=== PATIENT | female | born 1995 | race Caucasian/White ===

== ENCOUNTER 2018-12-27 13:49 | Inpatient (IN) | payer OTHER ==
[2018-12-27] MEDS ORDERED: MISOPROSTOL 200 MCG TAB PR ×2 (14:30→21:30)
[2018-12-27] MEDS ORDERED: OXYTOCIN 30 UNITS/LR 500 ML IV ×2 (14:30→21:30)
[2018-12-27] MEDS ORDERED: METHYLERGONOVINE 0.2 MG INJ IM ×2 (14:30→21:30)
[2018-12-27] MEDS ORDERED: CARBOPROST 250 MCG INJ IM ×2 (14:30→21:30)
[2018-12-27 14:35] LABS: ADD MAN DIFF? NO
[2018-12-27 14:41] LABS: BASOPHILS % 0.2 % (0.0-2.0); EOSINOPHILS % 0.2 % (0.0-7.0); HEMATOCRIT 31.5 % (37.0-47.0); HEMOGLOBIN 10.3 g/dl (12.0-16.0); LYMPHOCYTES # 0.9 10^3/ul (0.8-2.9); LYMPHOCYTES % 20.4 % (15.0-51.0); MEAN CORPUSCULAR HEMOGLOBIN 25.8 pg (29.0-33.0); MEAN CORPUSCULAR HGB CONC 32.7 g/dl (32.0-37.0); MEAN CORPUSCULAR VOLUME 78.8 fl (82.0-101.0); MEAN PLATELET VOLUME 11.7 fl (7.4-10.4); MONOCYTE # 0.3 10^3/ul (0.3-0.9); MONOCYTES % 5.8 % (0.0-11.0); NEUTROPHIL # 3.2 10^3/ul (1.6-7.5); NEUTROPHILS % 73.2 % (39.0-77.0); PLATELET COUNT 209 10^3/UL (140-415); RED CELL DISTRIBUTION WIDTH 13.4 % (11.5-14.5)
[2018-12-27 14:41] LABS: WHITE BLOOD COUNT 4.3 10^3/ul (4.8-10.8)
[2018-12-27] MEDS: GENTAMICIN 120 MG/NS (PMX) 100 ML IVPB (14:47)
[2018-12-27] MEDS: LACTATED RINGER'S 1,000 ML IV ×2 (14:47→23:24)
[2018-12-27 14:56] LABS: INR 0.84; PROTIME 11.6 Sec (11.9-14.9); PT RATIO 0.9
[2018-12-27 14:57] LABS: PARTIAL THROMBOPLASTIN TIME 28.1 Sec (23.0-35.0)
[2018-12-27 15:11] LABS: RAPID PLASMA REAGIN NONREACTIVE (NR)
[2018-12-27] MEDS: CITRIC ACID/NA CITRATE 30 ML CUP PO (15:33)
[2018-12-27 15:38] LABS: HEPATITIS B SURFACE ANTIGEN NEGATIVE (NEGATIVE)
[2018-12-27] MEDS ORDERED: ONDANSETRON 4 MG INJ (15:47)
[2018-12-27] MEDS ORDERED: morphine SULFATE/PF (10 MG/10 ML) INJ (15:47)
[2018-12-27] MEDS ORDERED: METOCLOPRAMIDE 10 MG INJ (15:47)
[2018-12-27] MEDS ORDERED: KETOROLAC 30 MG INJ (15:47)
[2018-12-27] MEDS ORDERED: NALOXONE (0.4 MG/ML) INJ IV (17:30)
[2018-12-27] MEDS ORDERED: MEPERIDINE 25 MG INJ IV (17:30)
[2018-12-27] MEDS ORDERED: DIPHENHYDRAMINE 50 MG INJ IV ×2 (17:30)
[2018-12-27] MEDS ORDERED: ONDANSETRON 4 MG INJ IV (17:30)
[2018-12-27] MEDS ORDERED: morphine 2 MG INJ IV ×6 (17:30)
[2018-12-27] MEDS ORDERED: KETOROLAC 30 MG INJ IV (17:30)
[2018-12-27] MEDS: CLINDAMYCIN 900 MG/D5W (PMX) 50 ML IVPB ×2 (17:59→21:30)
[2018-12-27] MEDS: OXYTOCIN 30 UNITS/LR 500 ML IV (18:17)
[2018-12-27] MEDS: ONDANSETRON 4 MG INJ IV (21:25)
[2018-12-27] MEDS ORDERED: NA PHOSPHATE/BIPHOS 133 ML ENEMA PR (21:30)
[2018-12-27] MEDS ORDERED: HYDROCODONE/APAP (5/325) TAB PO (21:30)
[2018-12-27] MEDS: GENTAMICIN 80 MG/NS (PMX) 50 ML IVPB (22:41)
[2018-12-28] MEDS: ACETAMINOPHEN 500 MG TAB PO (00:10)
[2018-12-28] MEDS: KETOROLAC 30 MG INJ IV ×3 (00:10→13:19)
[2018-12-28] MEDS: CLINDAMYCIN 900 MG/D5W (PMX) 50 ML IVPB ×2 (05:22→13:07)
[2018-12-28] MEDS: GENTAMICIN 80 MG/NS (PMX) 50 ML IVPB ×2 (06:32→13:23)
[2018-12-28 08:21] LABS: ADD MAN DIFF? NO
[2018-12-28 08:31] LABS: WHITE BLOOD COUNT 5.4 10^3/ul (4.8-10.8)
[2018-12-28 08:31] LABS: BASOPHILS % 0.2 % (0.0-2.0); EOSINOPHILS % 0.2 % (0.0-7.0); HEMATOCRIT 29.7 % (37.0-47.0); HEMOGLOBIN 9.9 g/dl (12.0-16.0); LYMPHOCYTES # 0.6 10^3/ul (0.8-2.9); LYMPHOCYTES % 11.6 % (15.0-51.0); MEAN CORPUSCULAR HEMOGLOBIN 26.2 pg (29.0-33.0); MEAN CORPUSCULAR HGB CONC 33.3 g/dl (32.0-37.0); MEAN CORPUSCULAR VOLUME 78.6 fl (82.0-101.0); MEAN PLATELET VOLUME 11.8 fl (7.4-10.4); MONOCYTE # 0.3 10^3/ul (0.3-0.9); MONOCYTES % 6.2 % (0.0-11.0); NEUTROPHIL # 4.4 10^3/ul (1.6-7.5); NEUTROPHILS % 81.6 % (39.0-77.0); PLATELET COUNT 176 10^3/UL (140-415); RED BLOOD COUNT 3.78 10^6/ul (4.20-5.40); RED CELL DISTRIBUTION WIDTH 13.5 % (11.5-14.5)
[2018-12-28] MEDS: SENNA/DOCUSATE NA (8.6MG/50MG) TAB PO ×2 (09:12→21:30)
[2018-12-28] MEDS: BISACODYL 10 MG SUPP PR (09:13)
[2018-12-28] MEDS: OXYCODONE/ACETAMINOPHEN (5/325) TAB PO (18:02)
[2018-12-28] MEDS: IBUPROFEN 800 MG TAB PO (21:30)
[2018-12-29] MEDS: IBUPROFEN 800 MG TAB PO ×3 (06:24→21:44)
[2018-12-29] MEDS: CLINDAMYCIN 300 MG CAP PO ×3 (06:24→17:34)
[2018-12-29 08:17] LABS: ADD MAN DIFF? NO
[2018-12-29 08:19] LABS: BASOPHILS % 0.1 % (0.0-2.0); EOSINOPHILS % 0.4 % (0.0-7.0); HEMATOCRIT 28.9 % (37.0-47.0); HEMOGLOBIN 9.6 g/dl (12.0-16.0); LYMPHOCYTES # 0.8 10^3/ul (0.8-2.9); LYMPHOCYTES % 10.1 % (15.0-51.0); MEAN CORPUSCULAR HEMOGLOBIN 26.2 pg (29.0-33.0); MEAN CORPUSCULAR HGB CONC 33.2 g/dl (32.0-37.0); MEAN PLATELET VOLUME 11.5 fl (7.4-10.4); MONOCYTE # 0.4 10^3/ul (0.3-0.9); MONOCYTES % 5.5 % (0.0-11.0); NEUTROPHIL # 6.7 10^3/ul (1.6-7.5); NEUTROPHILS % 83.5 % (39.0-77.0); PLATELET COUNT 193 10^3/UL (140-415); RED BLOOD COUNT 3.66 10^6/ul (4.20-5.40); RED CELL DISTRIBUTION WIDTH 13.9 % (11.5-14.5)
[2018-12-29] MEDS: SENNA/DOCUSATE NA (8.6MG/50MG) TAB PO ×2 (09:17→21:44)
[2018-12-30] MEDS: CLINDAMYCIN 300 MG CAP PO ×4 (00:02→18:02)
[2018-12-30] MEDS: IBUPROFEN 800 MG TAB PO ×2 (06:57→13:22)
[2018-12-30] MEDS: SENNA/DOCUSATE NA (8.6MG/50MG) TAB PO (09:36)
[2018-12-30] MEDS: DIPHTH/TET/ACEL PERTUSS (ADULT) 0.5 ML VIAL IM* (09:49)
[2018-12-30] MEDS: LANOLIN HPA 1 PKT TOP (12:38)
[2018-12-30] MEDS ORDERED: ACETAMINOPHEN 325 MG TAB PO (16:30)
[2018-12-30 17:25] LABS: ADD MAN DIFF? NO
[2018-12-30 17:27] LABS: BASOPHILS % 0.3 % (0.0-2.0); EOSINOPHILS # 0.1 10^3/ul (0.0-0.5); EOSINOPHILS % 2.2 % (0.0-7.0); HEMATOCRIT 30.4 % (37.0-47.0); LYMPHOCYTES % 17.1 % (15.0-51.0); MEAN CORPUSCULAR HEMOGLOBIN 26.6 pg (29.0-33.0); MEAN CORPUSCULAR HGB CONC 32.9 g/dl (32.0-37.0); MEAN CORPUSCULAR VOLUME 80.9 fl (82.0-101.0); MEAN PLATELET VOLUME 11.3 fl (7.4-10.4); MONOCYTE # 0.4 10^3/ul (0.3-0.9); MONOCYTES % 6.7 % (0.0-11.0); NEUTROPHIL # 4.3 10^3/ul (1.6-7.5); NEUTROPHILS % 73.4 % (39.0-77.0); PLATELET COUNT 233 10^3/UL (140-415); RED BLOOD COUNT 3.76 10^6/ul (4.20-5.40); RED CELL DISTRIBUTION WIDTH 14.3 % (11.5-14.5)
[2018-12-30 17:27] LABS: WHITE BLOOD COUNT 5.9 10^3/ul (4.8-10.8)
== END 2018-12-30 19:00 | disposition home or self-care (01) | DRG 788 ==
LOC: L-D 13:49 → PP1 20:49
PROVIDERS: Obstetrics & Gynecology
PROC: 10D00Z1 Extraction of Products of Conception, Low, Open Approach (ICD-10-PCS; principal; 2018-12-27 15:30)
PROC: 3E033VJ Introduction of Other Hormone into Peripheral Vein, Percutaneous Approach (ICD-10-PCS; 2018-12-27 15:30)
DX: O65.5 Obstructed labor due to abnormality of maternal pelvic organs (principal); O34.211 Maternal care for low transverse scar from previous cesarean delivery; O48.0 Post-term pregnancy; Z3A.40 40 weeks gestation of pregnancy; Z37.0 Single live birth
CPT/HCPCS: 85025; 85610; 85730; 86592; 86850; 86900; 86901; 87340; 99464